=== PATIENT | female | born 1995 | race Caucasian/White ===

== ENCOUNTER 2020-05-19 01:31 | Emergency (ER) | payer SELFPAY ==
[~2020-05-19] VITALS: Ht 160 cm; Wt 72.6 kg
[2020-05-19 03:27] VITALS: BP 120/92
== END 2020-05-19 03:27 | disposition home or self-care (01) ==
LOC: ED 01:31
DX: S13.9XXA Sprain of joints and ligaments of unspecified parts of neck, initial encounter (principal); S23.3XXA Sprain of ligaments of thoracic spine, initial encounter; S33.5XXA Sprain of ligaments of lumbar spine, initial encounter; S83.91XA Sprain of unspecified site of right knee, initial encounter; S09.8XXA Other specified injuries of head, initial encounter; W01.0XXA Fall on same level from slipping, tripping and stumbling without subsequent striking against object, initial encounter; Y93.89 Activity, other specified; Y92.89 Other specified places as the place of occurrence of the external cause; Y99.8 Other external cause status
CPT/HCPCS: 72072